=== PATIENT | male | born 1965 | race Caucasian/White ===

== ENCOUNTER 2020-03-09 01:11 | Emergency (ER) | payer OTHER, SELFPAY ==
--- NOTE | 2020-03-09 01:13 | RAD_ITS ---
STUDY: X-RAY CHEST REASON FOR EXAM: Male, 54 years old. Shortness of breath, chest tightness, cough. TECHNIQUE: Single AP portable view of the chest. COMPARISON: 03/01/2011 FINDINGS: Mild patchy airspace opacification at bilateral lung bases. No pleural effusion or pneumothorax. Normal size heart. Normal mediastinum and barbi. Normal visualized pulmonary arteries. Normal visualized aortic arch and descending thoracic aorta. There are diffuse degenerative changes of the visualized thoracic spine. Normal visualized ribs, clavicles, and shoulders. There is no demonstrated abnormality of the visualized soft tissue structures of the upper abdomen. RAD/Chest 1 View (Portable) IMPRESSION: Mild bibasilar atelectasis versus infiltrate. Electronically Signed: Saul López MD at 1:47 EST Tel , Service support ,
--- NOTE | 2020-03-09 01:13 | EKG12_ITS ---
Test Reason : CP Blood Pressure : / mmHG Vent. Rate : 130 BPM Atrial Rate : 130 BPM P-R Int : 164 ms QRS Dur : 082 ms QT Int : 280 ms P-R-T Axes : 044 018 043 degrees QTc Int : 412 ms Sinus tachycardia with Fusion complexes Otherwise normal ECG Confirmed by SOLE DENTON, JACKIE ([id number]), video tape editor DARION MENON ([id number]) on 03/12/2020 9:12:02 AM Referred By: HARJINDER Confirmed By:JACKIE WHIPPLE MD
[2020-03-09 01:14] VITALS: BP 125/83; PULSE 131; RESP 26; TEMP 38.3; O2SAT 96; BMI 39.2
--- NOTE | 2020-03-09 01:23 | ED.VISSUMM ---
- ER Visit Summary Date of Service: 03/09/20 Chief Complaint: Cough with chest discomfort History of Present Illness: The patient is a 54 M past medical history of diabetes and hypertension. Patient states for last 3 days or so he developed a nonproductive cough. Last night he has had midsternal chest discomfort without radiation. Is been constant. He denies chills he has had a fever as high as 1 or 2.4. He denies nausea, vomiting or diarrhea. He developed a cough several days ago. No hemoptysis. No phlegm. He denies any Covid exposure. States he walks a lot on a daily basis and has had no recent exertional chest pain or exertional dyspnea. Physical Examination: Middle-aged male no acute distress. Vital signs are stable he is tachycardic at 133. Pulse ox is 96% on room air temperature is 100.9. He does not look septic or toxic. He is in no distress. H EENT exam unremarkable. Neck nontender. No lymphadenopathy. Lungs dry hacking cough but no rales, rhonchi or wheezing. Equal symmetrical. Heart tachycardic rate about 130 no murmur. Abdomen soft nontender normal bowel sounds no peritoneal signs. Patient is moving all 4 extremities. Calves are nontender without edema no cords. Neurologically is awake and alert with no focal motor deficits. Answering questions and following commands. Test Results: EKG shows a sinus tachycardia rate of 130 with no acute signs of FL or ischemia. No [id number]. No change from prior EKG from February 2011. Test x-ray portable 1 view read by myself shows bilateral lower lobe infiltrates. Consistent with COVID-19. Also read by the radiologist who agrees. Normal cardiac silhouette and mediastinum. CBC shows a normal white count of 4. Hemoglobin 15. No bands. Chemistry shows a potassium of 3.4. Normal gap of 7. BUN 29 creatinine 1.45 consistent with mild dehydration and glucose of 159. Troponin is normal. COVID-19 rapid antigen is positive and consistent with his presentation. I did go over all test results with the patient. On repeat exam at 2:07 AM he is doing well. He remains stable. He is not hypoxic. Emergency Department Course and Treatment: Gentleman with a fever, cough and shortness of breath. With his fever of 102 at home and his symptoms this very possibly could be COVID-19. Could also be bronchitis or pneumonia. Currently I do not think it is cardiac but he will be evaluated for that also with the midsternal chest discomfort. He has no risk factors for PE. Treatment Plan: Decadron daily. Return if worsening symptoms. Follow-up with his PCP if not improving. Off work next 10 days. Quarantine. Plenty of fluids and rest. Tylenol for fever. Disposition: Discharge Impression: Acute COVID-19 pneumonitis History of diabetes and hypertension This note was generated with [employer] dictation software. It may contain incorrect words, spelling, and punctuation that were not noted in review of the chart prior to signing ED Disposition - Plan for ED Patient: Disposition: Home or Assisted Living Instructions: ED Upper Resp Infec No Abx Tx Prescriptions: Dexamethasone [Decadron] 6 mg PO DAILY 5 Days tab Prescription Printed Referrals: Naresh Cardenas MD [Primary Care Provider] - 3-5 Days if not improving Additional Instructions: You have a COVID-19 respiratory infection. Decadron once a day till gone. You have already had your dose for today you can start your prescription on Wednesday. Tylenol and limited ibuprofen for fever. Plenty of fluids and rest. Follow-up with your doctor if not improving. Return to the emergency department if feeling a lot worse or a lot more short of breath. Quarantine at home the next 10 days.
[2020-03-09 01:30] LABS: Absolute Lymphocyte Count 0.53 X10^3/uL (0.83-4.51); Absolute Neutrophil Count 3.8 X10^3/uL (2.0-7.7); Basophil# 0.01 X10^3/uL; Basophil% 0.2 % (0-1); Eosinophil# 0.01 X10^3/uL; Eosinophils% 0.2 % (0-5); Hematocrit 45.5 % (40-54); Lymphocyte # 0.53 X10^3/ul (4.0); Lymphocyte % 11.3 % (19-41); Mean Corpuscular Hgb 31.2 pg (27.0-32.0); Mean Corpuscular Volume 94.6 fL (80-94); Mean Platelet Vol. 8.9 fl (6.2-12.0); Monocyte# 0.37 X10^3/uL; Monocyte% 7.9 % (0-10); NRBC Flagged by Analyzer 0 % (0-5); Neutrophil # 3.78 X10^3/uL (2.7-7.7); Neutrophil % 80.2 % (47-70); POSITIVE DIFFERENTIAL YES; Platelet Count 150 K/mm3 (150-450); RBC Distribution Width CV 12.2 % (11.6-14.6); RBC Distribution Width SD 43.2 fl (35.1-43.9); Red Blood Count 4.81 M/mm3 (4.6-6.2); White Blood Count 4.7 K/mm3 (4.4-11.0)
[2020-03-09 01:31] LABS: Differential Indicated SCAN CRITERIA MET
[2020-03-09 01:58] LABS: Anion Gap 7 (5-15); BUN 29 mg/dL (7-18); Calcium,Total 8.7 mg/dL (8.5-10.1); Chloride 97 mmol/L (98-107); Creatinine, Serum 1.45 mg/dL (0.70-1.30); EST Glomerular Filtration Rate 54 mL/min (>60); Est Glom Filt Rate - Afr Amer 65 mL/min (>60); Estimated Creatinine Clearance 55.69 ml/min; Glucose 159 mg/dL (74-106); Potassium 3.4 mmol/L (3.5-5.1); Sodium Level 133 mmol/L (136-145)
--- NOTE | 2020-03-09 01:59 | ED.DEP ---
ED Disposition - Plan for ED Patient: Disposition: Home or Assisted Living Instructions: ED Upper Resp Infec No Abx Tx Prescriptions: Dexamethasone [Decadron] 6 mg PO DAILY 5 Days tab Prescription Printed Referrals: Naresh Cardenas MD [Primary Care Provider] - 3-5 Days if not improving Additional Instructions: You have a COVID-19 respiratory infection. Decadron once a day till gone. You have already had your dose for today you can start your prescription on Wednesday. Tylenol and limited ibuprofen for fever. Plenty of fluids and rest. Follow-up with your doctor if not improving. Return to the emergency department if feeling a lot worse or a lot more short of breath. Quarantine at home the next 10 days.
[2020-03-09] MEDS: dexAMETHasone 4 MG Tablet 6 MG PO (02:03)
[2020-03-09 02:06] LABS: Atypical Lymphocyte RARE %; Differential Comment SCANNED
[2020-03-09 02:09] VITALS: BP 156/106; PULSE 120; RESP 20; TEMP 38.2; O2SAT 94
== END 2020-03-09 02:09 | disposition home or self-care (01) ==
LOC: ED 02:24
PROVIDERS: Emergency Provider Emergency Medicine; PCP Internal Medicine
DX: U07.1 COVID-19 (principal); J12.89 Other viral pneumonia; E11.9 Type 2 diabetes mellitus without complications; I10 Essential (primary) hypertension
CPT/HCPCS: 71045; 80048; 84484; 85025; 87426; 93005; 99283

== ENCOUNTER 2020-06-25 14:53 | Outpatient (RCR) | payer OTHER, SELFPAY ==
[2020-06-25] MEDS: COVID-19 VACC, MRNA(PFIZER)/PF 30 MCG/0.3 ML SYRINGE IM (15:38)
[2020-07-16] MEDS: COVID-19 VACC, MRNA(PFIZER)/PF 30 MCG/0.3 ML SYRINGE IM (15:22)
== END 2020-09-17 23:59 ==
LOC: IMMUN 14:53
PROVIDERS: PCP Internal Medicine; Visit Provider Family Medicine
DX: Z23 Encounter for immunization (principal)
CPT/HCPCS: 0001A; 0002A; 91300